=== PATIENT | female | born 1970 | race Caucasian/White ===

== ENCOUNTER 2020-09-28 01:15 | Emergency (ER) | payer MEDICAID ==
[~2020-09-28] VITALS: Ht 160 cm; Wt 69.9 kg
[2020-09-28 01:32] VITALS: BP 152/87
--- NOTE | 2020-09-28 01:39 | NUR ---
PT AMBULATED TO BED 02
--- NOTE | 2020-09-28 01:42 | NUR ---
50/F BIB DAUGHTER IN LAW C/O EPIGASTRIC ABDOMINAL PAIN 10/10 BURNING WHICH STARTED 2 MONTHS AGO AND HAS PERSISTED. PT ALSO WITH MILD DYSURIA, NAUSEA AND LOW APPETITE. DENIES ANY VOMITING, DIARRHEA, FEVER. PATIENT REPORTS WORKING WITH HEAVY STUFF FOR A JOB AND POSSIBLY PUTTING STRESS ON AN OLD HERNIA. PATIENT REPORTS BEING IN THE HOSPITAL 3X BUT NOT ADMITTED AND THEY CANT FIND OUT WHAT IS WRONG WITH PATIENT. AAOX4. VSS. PMH: HERNIA, COLITIS, GASTRITIS NKDA
--- NOTE | 2020-09-28 01:46 | NUR ---
PATIENT AMBULATED TO THE BATHROOM FOR URINE COLLECTION
--- NOTE | 2020-09-28 02:15 | NUR ---
Patient appears to be resting in bed with pain. MD made aware. Vital Signs within normal limits. Respirations even and unlabored. Daughter in law at bedside. Safety measures in place. Will continue to monitor.
[2020-09-28] MEDS ORDERED: NACL 0.9% 500 ML IV ONE (03:55)
[2020-09-28] MEDS ORDERED: ONDANSETRON 4 MG/2 ML VIAL IVP ONE (03:55)
[2020-09-28] MEDS ORDERED: PANTOPRAZOLE 40 MG INJ VIAL IVP ONE (03:55)
[2020-09-28] MEDS ORDERED: MORPHINE SULFATE 2 MG/ML SYR IVP ONE (03:55)
--- NOTE | 2020-09-28 04:06 | NUR ---
EKG PERFORMED AT BEDSIDE. EKG READS SINUS RHYTHM @ 72
[2020-09-28 04:48] LABS: BASOPHILS % (AUTO) 0.5 % (0.0-2.0); EOSINOPHILS # (AUTO) 0.1 K/uL (0-0.4); EOSINOPHILS % (AUTO) 1.3 % (0.0-4.0); HEMATOCRIT 34.3 % (36-48); LYMPHOCYTES # (AUTO) 1.6 K/uL (2.5-16.5); LYMPHOCYTES % (AUTO) 27.9 % (20.5-51.1); MEAN CORPUSCULAR HEMOGLOBIN 24 pg (27-31); MEAN CORPUSCULAR HGB CONC 32 g/dL (33-37); MEAN CORPUSCULAR VOLUME 74.9 fL (80-94); MONOCYTES # (AUTO) 0.4 K/uL (0.8-1.0); MONOCYTES % (AUTO) 6.5 % (1.7-9.3); NEUTROPHILS # (AUTO) 3.6 K/uL (1.8-7.7); NEUTROPHILS % (AUTO) 63.8 % (42.2-75.2); PLATELET COUNT (AUTO) 249 K/uL (140-450); RED BLOOD CELL COUNT(AUTO) 4.58 MIL/uL (4.20-5.40); WHITE BLOOD COUNT (AUTO) 5.6 K/uL (4.8-10.8)
[2020-09-28 05:03] LABS: ALBUMIN 4.2 g/dL (3.4-5.0); ANION GAP 10.4 (8-16); CREATININE 0.7 mg/dL (0.6-1.3); POTASSIUM 3.4 mmol/L (3.5-5.1); TOTAL BILIRUBIN 0.4 mg/dL (0.0-1.0)
[2020-09-28 05:49] LABS: APPEARANCE,URINE CLEAR (CLEAR); BILIRUBIN,URINE NEGATIVE (NEGATIVE); BLOOD, URINE TRACE-I (NEGATIVE); COLOR,URINE YELLOW (YELLOW); LEUKOCYTE ESTERASE ,URINE NEGATIVE (NEGATIVE); NITRITE, URINE NEGATIVE (NEGATIVE); UGLUCOSE NEGATIVE (NEGATIVE)
[2020-09-28 06:12] LABS: RBC,URINE 0-5 /HPF (0-5); WBC,URINE 0-5 /HPF (0-5)
[2020-09-28] MEDS ORDERED: MAGNESIUM CITRATE 300 ML BTL PO ONE (06:55)
[2020-09-28] MEDS ORDERED: PANT40EC PO (07:10)
[2020-09-28 07:27] VITALS: BP 155/70
--- NOTE | 2020-09-28 07:27 | NUR ---
Patient discharged with v/s stable. Written and verbal after care instructions given and explained. Patient alert, oriented and verbalized understanding of instructions. Ambulatory with steady gait. All questions addressed prior to discharge. IV ACCESS AND ID band removed. Patient advised to follow up with PMD. Rx of PROTONIX given. Patient educated on indication of medication including possible reaction and side effects. Opportunity to ask questions provided and answered.
== END 2020-09-28 07:27 | disposition home or self-care (01) ==
LOC: MED 01:15
DX: K29.70 Gastritis, unspecified, without bleeding (principal); K56.41 Fecal impaction
CPT/HCPCS: 36415; 74176; 80053; 81001; 81025; 83690; 84484; 85025; 93005; 96374; 96375; 99285; C9113; J2270; J2405; J7030; 96372